=== PATIENT | female | born 1980 | race Caucasian/White ===

== ENCOUNTER 2019-07-26 09:16 | Inpatient (IN) | payer OTHER ==
[2019-07-26] MEDS ORDERED: NACL 0.9% 3 ML SYG IV (10:30)
[2019-07-26] MEDS ORDERED: ACETAMINOPHEN 325 MG TAB PO (10:30)
[2019-07-26] MEDS ORDERED: HYDROmorphONE 0.5 MG/0.5 ML SYG IV (10:30)
[2019-07-26] MEDS: SOD CHLORIDE 0.9% 1,000 ML IV ×3 (11:24→21:52)
[2019-07-26] MEDS: LORAZEPAM 2 MG INJ IV ×3 (11:25→21:07)
[2019-07-26] MEDS: morphine 2 MG INJ IV ×3 (12:46→22:36)
[2019-07-26 12:54] LABS: LIPASE 885 U/L (23-300)
[2019-07-26 12:54] LABS: AMYLASE 166 U/L (11-123)
[2019-07-26 13:03] LABS: ETHANOL < 10.0 mg/dl (0-0)
[2019-07-26 13:15] LABS: AMPHETAMINE/METHAMPHETAMINE NEGATIVE (NEGATIVE); BARBITURATES NEGATIVE (NEGATIVE); BENZODIAZEPINES NEGATIVE (NEGATIVE); CANNABINOIDS NEGATIVE (NEGATIVE); COCAINE NEGATIVE (NEGATIVE)
[2019-07-26 13:17] LABS: OPIATES POSITIVE (NEGATIVE)
[2019-07-26 14:09] LABS: TRIGLYCERIDES 60 mg/dl (0-149)
[2019-07-26] MEDS: CHLORDIAZEPOXIDE 25 MG CAP PO ×2 (15:49→21:00)
[2019-07-26] MEDS: PANTOPRAZOLE 40 MG INJ IV (18:10)
[2019-07-26] MEDS ORDERED: FAMOTIDINE 20 MG INJ IV (21:00)
[2019-07-26] MEDS: MULTIVITAMINS 10 ML, THIAMINE 100 MG, FOLIC ACID 1 MG in SOD CHLORIDE 0.9% 1,000 ML IVPB (22:10)
[2019-07-27] MEDS: SOD CHLORIDE 0.9% 1,000 ML IV ×5 (02:52→23:58)
[2019-07-27] MEDS: morphine 2 MG INJ IV ×2 (05:04→09:10)
[2019-07-27] MEDS: PANTOPRAZOLE 40 MG INJ IV ×2 (05:04→17:34)
[2019-07-27] MEDS: LORAZEPAM 2 MG INJ IV ×5 (06:09→22:32)
[2019-07-27 08:58] LABS: ADD MAN DIFF? NO
[2019-07-27 09:01] LABS: WHITE BLOOD COUNT 5.5 10^3/ul (4.8-10.8)
[2019-07-27 09:01] LABS: BASOPHILS % 0.4 % (0.0-2.0); EOSINOPHILS # 0.1 10^3/ul (0.0-0.5); HEMATOCRIT 39.9 % (37.0-47.0); LYMPHOCYTES # 1.2 10^3/ul (0.8-2.9); LYMPHOCYTES % 20.9 % (15.0-51.0); MEAN CORPUSCULAR HEMOGLOBIN 34.9 pg (29.0-33.0); MEAN CORPUSCULAR HGB CONC 32.6 g/dl (32.0-37.0); MEAN CORPUSCULAR VOLUME 107.3 fl (82.0-101.0); MEAN PLATELET VOLUME 10.1 fl (7.4-10.4); MONOCYTE # 0.6 10^3/ul (0.3-0.9); MONOCYTES % 10.9 % (0.0-11.0); NEUTROPHIL # 3.6 10^3/ul (1.6-7.5); NEUTROPHILS % 65.6 % (39.0-77.0); PLATELET COUNT 201 10^3/UL (140-415); RED BLOOD COUNT 3.72 10^6/ul (4.20-5.40); RED CELL DISTRIBUTION WIDTH 11.9 % (11.5-14.5)
[2019-07-27] MEDS: CHLORDIAZEPOXIDE 25 MG CAP PO ×3 (09:10→20:04)
[2019-07-27 09:27] LABS: ALANINE AMINOTRANSFERASE 48 IU/L (13-69); ALBUMIN 3.5 g/dl (3.3-4.9); ALBUMIN/GLOBULIN RATIO 1.12; ALKALINE PHOSPHATASE 83 IU/L (42-121); ANION GAP 5 (5-13); ASPARTATE AMINO TRANSFERASE 55 IU/L (15-46); BILIRUBIN,INDIRECT 0.4 mg/dl (0-1.1); BILIRUBIN,TOTAL 0.4 mg/dl (0.2-1.3); BLOOD UREA NITROGEN 8 mg/dl (7-20); CALCIUM 9.4 mg/dl (8.4-10.2); CARBON DIOXIDE 33 mmol/L (21-31); CHLORIDE 97 mmol/L (97-110); CREATININE 0.54 mg/dl (0.44-1.00); Estimated GFR > 60 mL/min (>60); GLUCOSE 117 mg/dl (70-220); POTASSIUM 3.7 mmol/L (3.5-5.1); SODIUM 135 mmol/L (135-144); TOTAL PROTEIN 6.6 g/dl (6.1-8.1)
[2019-07-27 09:32] LABS: C-REACTIVE PROTEIN 3.5 mg/dl (0.0-0.9)
[2019-07-27 09:41] LABS: MAGNESIUM 2.1 mg/dl (1.7-2.5)
[2019-07-27 09:48] LABS: LIPASE 2697 U/L (23-300)
[2019-07-27] MEDS: PROPOFOL 20 ML (10:21)
[2019-07-27] MEDS: SUCRALFATE (100 MG/ML) 10ML CUP PO ×3 (12:48→20:04)
[2019-07-27] MEDS: METHADONE 10 MG TAB PO (14:19)
[2019-07-28] MEDS: LORAZEPAM 2 MG INJ IV ×5 (03:25→20:34)
[2019-07-28] MEDS: SOD CHLORIDE 0.9% 1,000 ML IV ×4 (03:27→20:35)
[2019-07-28] MEDS: ONDANSETRON 4 MG INJ IV ×2 (03:32→20:06)
[2019-07-28] MEDS: PANTOPRAZOLE 40 MG INJ IV ×2 (05:05→18:07)
[2019-07-28] MEDS: THIAMINE 100 MG TAB PO (08:43)
[2019-07-28] MEDS: CHLORDIAZEPOXIDE 25 MG CAP PO ×3 (08:43→20:34)
[2019-07-28] MEDS: SUCRALFATE (100 MG/ML) 10ML CUP PO ×4 (08:43→20:34)
[2019-07-28 09:44] LABS: C-REACTIVE PROTEIN 2.2 mg/dl (0.0-0.9)
[2019-07-28 09:45] LABS: AMYLASE 190 U/L (11-123)
[2019-07-28 09:45] LABS: LIPASE 1615 U/L (23-300)
[2019-07-28] MEDS: METHADONE 10 MG TAB PO (10:17)
[2019-07-28 19:13] LABS: ANA SCREEN NEGATIVE (NEGATIVE)
[2019-07-29] MEDS: LORAZEPAM 2 MG INJ IV ×4 (00:34→12:35)
[2019-07-29] MEDS: ONDANSETRON 4 MG INJ IV (02:44)
[2019-07-29] MEDS: SOD CHLORIDE 0.9% 1,000 ML IV (02:51)
[2019-07-29] MEDS: PANTOPRAZOLE 40 MG INJ IV (05:01)
[2019-07-29] MEDS: THIAMINE 100 MG TAB PO (08:29)
[2019-07-29] MEDS: CHLORDIAZEPOXIDE 25 MG CAP PO ×2 (08:29→12:35)
[2019-07-29] MEDS: SUCRALFATE (100 MG/ML) 10ML CUP PO ×2 (08:29→12:35)
[2019-07-29] MEDS: METHADONE 10 MG TAB PO (08:30)
== END 2019-07-29 16:00 | disposition home or self-care (01) | DRG 440 ==
LOC: MS1 09:16 → MS3 07-27 18:13
PROC: 0DB58ZX Excision of Esophagus, Via Natural or Artificial Opening Endoscopic, Diagnostic (ICD-10-PCS; principal; 2019-07-26 19:00)
PROC: 0DB68ZX Excision of Stomach, Via Natural or Artificial Opening Endoscopic, Diagnostic (ICD-10-PCS; 2019-07-26 19:00)
DX: K85.20 Alcohol induced acute pancreatitis without necrosis or infection (principal); K76.0 Fatty (change of) liver, not elsewhere classified; G89.4 Chronic pain syndrome; F41.9 Anxiety disorder, unspecified; F10.10 Alcohol abuse, uncomplicated; K29.00 Acute gastritis without bleeding; K20.9 Esophagitis, unspecified; F43.10 Post-traumatic stress disorder, unspecified; K70.9 Alcoholic liver disease, unspecified
CPT/HCPCS: 80053; 80307; 82150; 82787; 83690; 83735; 84100; 84478; 85025; 86038; 86140; 88305; 88312